=== PATIENT | female | born 1940 ===

== ENCOUNTER 2019-09-10 20:33 | Emergency (ER) | payer MEDICARE ==
[2019-09-10] MEDS ORDERED: Magnesium Citrate Solution 296 ML Bottle PO ONE (20:56)
--- NOTE | 2019-09-10 21:01 | EDM.PDOC ---
ED HPI GENERAL MEDICAL PROBLEM - General Chief Complaint: General Stated Complaint: constipation Time Seen by Provider: 09/10/19 20:37 Source of Information: Reports: Patient History Limitations: Reports: No Limitations - History of Present Illness INITIAL COMMENTS - FREE TEXT/NARRATIVE: Patient feels constipated. Unable to have bowel movement since this past Thursday, 4 days ago. Is visiting here from [place], trying to sell her aunt's home and get aunt moved to [place] home. Cites stress/diet change as factors likely contributing to the constipation. Does not get constipated frequently. No nausea/emesis. No fevers/chills. No other reported acute changes. Takes Magnesium daily in order to avoid constipation rectum/bottum Pain Score (Numeric/FACES): 7 - Related Data Allergies Allergy/AdvReac Type Severity Reaction Status Date / Time erythromycin base Allergy Vomiting Verified 09/10/19 20:42 Penicillins Allergy Vomiting Verified 09/10/19 20:42 Home Meds: Home Meds Aspirin [Halfprin] 81 mg PO DAILY 09/10/19 [History] Calcium Carb, Citrate/Vit D3 [Citracal + D ER] 1 each PO DAILY 09/10/19 [History] Irbesartan/Hydrochlorothiazide [Irbesartan-Hctz 300-12.5 mg Tb] 1 each PO DAILY 09/10/19 [History] Magnesium 650 mg PO DAILY 09/10/19 [History] Metoprolol Succinate 25 mg PO BEDTIME 09/10/19 [History] Multivitamin 1 each PO DAILY 09/10/19 [History] Non-Formulary Medication [NF Drug] 1 tab PO DAILY 09/10/19 [History] [place]-3/DHA/Epa/Fish Oil [Fish Oil 1,000 mg Softgel] 1 each PO DAILY 09/10/19 [History] Ubidecarenone [Co Q-10] 300 mg PO DAILY 09/10/19 [History] Vitamin E 400 unit PO DAILY 09/10/19 [History] amLODIPine Besylate [Amlodipine Besylate] 10 mg PO BEDTIME 09/10/19 [History] atorvaSTATin [Lipitor] 40 mg PO BEDTIME 09/10/19 [History] Social & Family History - Tobacco Use Smoking Status *Q: Never Smoker Second Hand Smoke Exposure: No - Caffeine Use Caffeine Use: Reports: Coffee Other Caffeine Use: 1 cup - Recreational Drug Use Recreational Drug Use: No ED ROS GENERAL - Review of Systems Review Of Systems: See Below Constitutional: Reports: No Symptoms HEENT: Reports: No Symptoms, Glasses Respiratory: Reports: No Symptoms Cardiovascular: Reports: No Symptoms Endocrine: Reports: No Symptoms GI/Abdominal: Reports: Constipation. Denies: Abdominal Pain, Diarrhea, Decreased Appetite, Difficulty Swallowing, Distension, Hematemesis, Hematochezia, Nausea, Vomiting : Reports: No Symptoms Musculoskeletal: Reports: No Symptoms (no acute changes from baseline) Skin: Reports: No Symptoms Neurological: Reports: No Symptoms Psychiatric: Reports: No Symptoms Hematologic/Lymphatic: Reports: No Symptoms ED EXAM, GENERAL - Physical Exam Exam: See Below Exam Limited By: No Limitations General Appearance: Alert, WD/WN, No Apparent Distress Eye Exam: Bilateral Eye: EOMI, PERRL Ears: Hearing Grossly Normal Nose: No: Nasal Deformity, Nasal Swelling, Nasal Drainage Throat/Mouth: Normal Lips, Normal Voice, No Airway Compromise Head: Atraumatic, Normocephalic Neck: Supple Respiratory/Chest: No Respiratory Distress, Lungs Clear, Normal Breath Sounds, No Accessory Muscle Use Cardiovascular: Regular Rate, Rhythm, No Murmur GI/Abdominal: Soft, Non-Tender, No Distention, Other (bowel sounds present but slightly diminished throughout) (Female) Exam: Deferred Rectal (Female) Exam: Deferred Back Exam: Normal Inspection Extremities: Normal Inspection, Normal Capillary Refill Neurological: Alert, Oriented, Normal Cognition, No Motor/Sensory Deficits Psychiatric: Normal Affect, Normal Mood Skin Exam: Warm, Dry, Intact, Normal Color Course - Vital Signs Last Recorded V/S: Last Vital Signs Temp 36.4 C 09/10/19 20:34 Pulse 79 09/10/19 20:34 Resp 18 09/10/19 20:34 BP 141/58 H 09/10/19 20:34 Pulse Ox 96 09/10/19 20:34 - Orders/Labs/Meds Meds: Medications Discontinued Medications Generic Name Dose Route Start Last Admin Trade Name Freq PRN Reason Stop Dose Admin Magnesium Citrate 296 ml 09/10/19 20:56 09/10/19 21:51 Citrate Of Magnesia PO 09/10/19 20:57 296 ml ONETIME ONE Administration - Re-Assessments/Exams Free Text/Narrative Re-Assessment/Exam: 09/10/19 21:00 Plan at this time is to have patient receive soap suds enema. If that goes well will have her drink one bottle of Mag Citrate at time of discharge to promote bowel movement. She is to follow up over the weekend if she has continued/worsening problems. 09/12/19 15:05 Very large stool resulted from enema. Patient felt much improved. Departure - Departure Time of Disposition: 21:45 Disposition: Home, Self-Care 01 Condition: Good Clinical Impression: Constipation Qualifiers: Constipation type: unspecified constipation type Qualified Code(s): K59.00 - Constipation, unspecified - Discharge Information *PRESCRIPTION DRUG MONITORING PROGRAM REVIEWED*: Not Applicable *COPY OF PRESCRIPTION DRUG MONITORING REPORT IN PATIENT JAMIL: Not Applicable Instructions: Constipation, Adult, [id number] Referrals: PCP,None [Primary Care Provider] - Forms: ED Department Discharge Additional Instructions: See how you feel after having the enema and once the Mag Citrate works its way through your system. If you are feeling better, it is recommended that you tack picker another bottle of MagCitrate and drink 1/2 a bottle tomorrow, and 1/2 on Thursday just to make sure that the constipation is cleared out. package center supervisor Preparation H as you might get irritation from the frequent stools. If this does not lead to significant improvement in symptoms, or you have new problems develop, please feel free to return to the ER or give us a call. Sepsis Event Note (ED) - Evaluation Sepsis Screening Result: No Definite Risk
== END 2019-09-10 21:40 | disposition home or self-care (01) ==
LOC: LL.ED 20:33
DX: K59.00 Constipation, unspecified (principal); Z88.1 Allergy status to other antibiotic agents; Z88.0 Allergy status to penicillin; Z79.82 Long term (current) use of aspirin
CPT/HCPCS: 99282; 99283; A9270-GY